=== PATIENT | male | born 1995 | race Caucasian/White ===

== ENCOUNTER 2020-04-14 21:17 | Emergency (ER) | payer SELFPAY ==
[~2020-04-14] VITALS: Ht 172.7 cm; Wt 83.9 kg
[2020-04-14] MEDS ORDERED: MORPHINE SULF INJ 2 MG/ML SYRINGE 1ML IM ONE (23:45)
[2020-04-14] MEDS ORDERED: ONDANSETRON ODT 4 MG TAB PO ONE (23:45)
[2020-04-15] MEDS ORDERED: MORPHINE SULF INJ 2 MG/ML SYRINGE 1ML IM ONE (00:15)
[2020-04-15] MEDS ORDERED: HYDROmorphone HCL 2 MG/ML VL IM ONE (01:15)
[2020-04-15 01:36] VITALS: BP 121/74
== END 2020-04-15 02:41 | disposition home or self-care (01) ==
LOC: ER 21:18
DX: S42.292A Other displaced fracture of upper end of left humerus, initial encounter for closed fracture (principal); V29.9XXA Motorcycle rider (driver) (passenger) injured in unspecified traffic accident, initial encounter; Y93.89 Activity, other specified; Y92.89 Other specified places as the place of occurrence of the external cause; Y99.8 Other external cause status
CPT/HCPCS: 73030; 73060; 96372; 99284; J1170; J2270; Q0162

== ENCOUNTER 2023-01-16 13:15 | Emergency (ER) | payer MEDICAID, OTHER ==
[~2023-01-16] VITALS: Ht 172.7 cm; Wt 80.2 kg
[2023-01-16 14:21] VITALS: BP 106/66
[2023-01-16] MEDS ORDERED: LIDOCAINE 1% HCL (LOCAL ANESTH.) INJ 20ML MDV IJ ONE (14:30)
[2023-01-16] MEDS ORDERED: IBUP600T27 PO (14:47)
[2023-01-16] MEDS ORDERED: CEPH-510 PO (14:47)
[2023-01-16] MEDS ORDERED: NEOMYCIN-BACITRACIN-POLYM 15GM TOP OINT TOP SCH (22:00)
== END 2023-01-16 14:52 | disposition home or self-care (01) ==
LOC: ER 13:15
DX: L60.0 Ingrowing nail (principal); Z79.1 Long term (current) use of non-steroidal anti-inflammatories (NSAID); Z79.2 Long term (current) use of antibiotics
CPT/HCPCS: 11730; 99284; J2001